=== PATIENT | female | born 1965 | race Caucasian/White ===

== ENCOUNTER 2020-09-13 06:54 | Day surgery (SDC) | payer OTHER ==
[~2020-09-13 06:54] MED LIST: Bupivacaine 0.5% 30 ML SDV ONE
[2020-09-13] MEDS ORDERED: Lactated Ringers 1,000 ML IV SCH (07:30)
[2020-09-13] MEDS ORDERED: fentaNYL 100 MCG/2 ML SDV ONE (07:33)
[2020-09-13] MEDS ORDERED: Propofol 200 MG/20 ML SDV ONE (07:33)
[2020-09-13] MEDS ORDERED: Midazolam 1 MG/ML 2 ML SDV ONE (07:33)
[2020-09-13] MEDS ORDERED: Nozin Nasal Sanitizer NASBOTH ONE (08:00)
[2020-09-13 08:03] LABS: CORONAVIRUS COVID-19 NAA NEGATIVE (NEGATIVE)
[2020-09-13] MEDS ORDERED: ceFAZolin 1 GM in Premix Bag 1 BAG IV ONE (08:30)
[2020-09-13] MEDS ORDERED: Ketorolac 60 MG/2 ML SDV ONE (10:35)
[2020-09-13] MEDS ORDERED: Acetaminophen/HYDROcodone 325-5 MG Tab PO PRN (11:20)
--- NOTE | 2020-09-15 14:54 | OR ---
DATE OF PROCEDURE: 09/13/2020 SURGEON: Esequiel Guillory MD PREOPERATIVE DIAGNOSES: 1. Chondromalacia, right knee. 2. Meniscus tear, right knee. POSTOPERATIVE DIAGNOSES: 1. Chondromalacia, patellofemoral joint, grade 2 and early grade 3. 2. Chondromalacia, medial femoral condyle, grade 4. PROCEDURE PERFORMED: Arthroscopy of right knee with chondroplasty of patella, trochlea, and medial femoral condyle. ANESTHESIA: General. INDICATIONS: Francheska is a 55-year-old female with a history of right knee pain. Examination and imaging are consistent with chondromalacia and possible meniscus tear. She now presents for arthroscopic evaluation with partial meniscectomy and chondroplasty as necessary. Risks, benefits, potential complications of the procedure were discussed. DESCRIPTION OF PROCEDURE: After adequate anesthesia was obtained, the patient was placed supine with a tourniquet about the right upper thigh. Right leg was prepped and draped in a sterile fashion. Leg was exsanguinated by gravity and tourniquet inflated to 300 mmHg. Standard inferior medial parapatellar portals were established. Scope was introduced, and the patellofemoral joint was inspected. This revealed significant fraying and fissuring of the cartilage on the dome of the patella, primarily grade 2, with some early grade 3 changes. Trochlear groove showed 2 areas of grade 2 chondromalacia, one central, and one more medial. Moving into the medial compartment, an area of significant chondromalacia on the medial femoral condyle was present with a significant fragment of articular cartilage present in the base of the lesion posteriorly on the condyle and attached by a thin stalk. This was essentially loose within the bed of the defect and hanging by one small connecting strand. This was removed with the shaver. The edges of the defect were lightly debrided. This was essentially full-thickness loss with a very thin layer still present in some areas. Hook probe was utilized to evaluate the meniscus. This was found to be intact with no significant tears. ACL and PCL were intact with some synovitis over the structures in the intercondylar notch. Lateral compartment revealed intact meniscus and intact articular cartilage. Attention was returned to the patellofemoral joint where a shaver was used to debride the loose fragments from the patella. Knee was flexed. Patella tracking was evaluated, which showed no significant irregularity. All loose fragments were removed. The knee was drained, and scope was withdrawn. Port sites were closed in a standard fashion, infiltrated with Marcaine, and a sterile dressing was applied. The patient tolerated the procedure well. There were no complications. She was taken from the operating room in stable condition. Esequiel Guillory MD /[id number]
== END 2020-09-13 13:00 | disposition home or self-care (01) ==
LOC: JP.SDS 06:54
PROVIDERS: ATTEND Specialist
DX: M94.261 Chondromalacia, right knee (principal); M65.861 Other synovitis and tenosynovitis, right lower leg; I10 Essential (primary) hypertension; E03.9 Hypothyroidism, unspecified; E78.5 Hyperlipidemia, unspecified; Z01.812 Encounter for preprocedural laboratory examination; Z20.822 Contact with and (suspected) exposure to COVID-19; Z79.890 Hormone replacement therapy; Z98.890 Other specified postprocedural states; Z88.8 Allergy status to other drugs, medicaments and biological substances; Z79.899 Other long term (current) drug therapy
CPT/HCPCS: 0241U; 36415; 80053; 85027; A9270-GY; J0690; J1885; J2250; J2704; J3010; J3490; J7120

== ENCOUNTER 2023-06-19 17:46 | Emergency (ER) | payer SELFPAY ==
[2023-06-19] MEDS: cefTRIAXone 1 GM in Sodium Chloride 0.9% 50 ML IV SCH (18:42)
[2023-06-19] MEDS: Sodium Chloride 0.9% 1,000 ML IV SCH (18:42)
[2023-06-19 18:44] LABS: BASOPHILS PERCENT AUTO 0.2 % (0.1-1.3); EOSINOPHILS PERCENT AUTO 0.2 % (0.0-5.4); HEMATOCRIT 36.2 % (34.3-46.0); HEMOGLOBIN 12.5 g/dL (11.2-15.5); IMMATURE GRAN ABSOLUTE AUTO 0.04 K/uL (0.00-0.23); IMMATURE GRAN PERCENT AUTO 0.4 % (0.0-0.7); LYMPHOCYTES ABSOLUTE AUTO 0.53 K/uL (0.8-3.3); MEAN CORPUSCULAR HEMOGLOBIN 28.4 pg (31.6-35.5); MEAN CORPUSCULAR HGB CONC 34.5 g/dL (31.6-35.5); MEAN CORPUSCULAR VOLUME 82.3 fL (81.4-99.0); MONOCYTES PERCENT AUTO 4.8 % (3.3-12.6); NEUTROPHILS ABSOLUTE AUTO 9.41 K/uL (1.0-7.6); NEUTROPHILS PERCENT AUTO 89.4 % (40.0-78.1); PLATELET COUNT,PLT 282 K/uL (130-375); WHITE BLOOD CELL COUNT,WBC 10.5 K/uL (3.2-11.0)
[2023-06-19 18:45] LABS: BASOPHILS ABSOLUTE AUTO 0.02 K/uL (0.00-0.10); EOSINOPHILS ABSOLUTE AUTO 0.02 K/uL (0.00-0.40)
[2023-06-19 19:06] LABS: A/G RATIO 1.1 (1.2-2.2); ALANINE AMINOTRANSFERASE,ALT 21 U/L (12-78); ALBUMIN 4.2 g/dL (3.4-5.0); ALKALINE PHOSPHATASE 91 U/L (46-116); ASPARTATE AMNIOTRANSFERASE,AST 17 U/L (15-37); BILIRUBIN TOTAL 0.8 mg/dL (0.2-1.0); BLOOD UREA NITROGEN,BUN 13 mg/dL (7-18); C-REACTIVE PROTEIN 3.18 mg/dL (<0.50); CALCIUM 8.9 mg/dL (8.5-10.1); CARBON DIOXIDE,CO2 26 mmol/L (21-32); CHLORIDE,CL 92 mmol/L (100-108); CREATININE 0.7 mg/dL (0.6-1.0); ESTIMATED GFR 101 mL/min (>60); GLUCOSE RANDOM 114 mg/dL (74-106); POTASSIUM,K 3.2 mmol/L (3.6-5.2); PROTEIN TOTAL,TP 7.9 g/dL (6.4-8.2); SODIUM,NA 130 mmol/L (140-148)
[2023-06-19 19:07] LABS: ANION GAP 15.2 mmol/L (5.0-14.0)
[2023-06-19 19:09] LABS: LACTIC ACID 0.8 mmol/L (0.4-2.0)
[2023-06-19 20:51] LABS: APPEARANCE,URINE SLIGHTLY CLOUDY (CLEAR); BILIRUBIN,URINE NEGATIVE (NEGATIVE); COLOR,URINE YELLOW (YELLOW); GLUCOSE,URINE NEGATIVE (NEGATIVE); KETONES,URINE NEGATIVE (NEGATIVE); LEUKOCYTE ESTERASE,URINE MODERATE (NEGATIVE); NITRITE,URINE NEGATIVE (NEGATIVE); OCCULT BLOOD,URINE TRACE-LYSED (NEGATIVE); PH,URINE 6.5 (5.0-8.0); PROTEIN,URINE NEGATIVE (NEGATIVE); UROBILINOGEN,URINE 0.2 EU/dL (0.2-1.0)
[2023-06-19 20:57] LABS: AMORPHOUS SEDIMENT,URINE NOT SEEN; BACTERIA,URINE FEW; EPITHELIAL CELLS,URINE RARE; MUCUS,URINE NOT SEEN; RBC,URINE 0-5 (0-5); WBC,URINE SEMI-PACKED (0-5)
[2023-06-19] MEDS: Ketorolac 30 MG/ML SDV IVPUSH ONE (21:08)
== END 2023-06-19 22:05 | disposition home or self-care (01) ==
LOC: JP.ED 17:46
DX: N39.0 Urinary tract infection, site not specified (principal); I10 Essential (primary) hypertension; Z88.8 Allergy status to other drugs, medicaments and biological substances; Z79.899 Other long term (current) drug therapy
CPT/HCPCS: 36415; 80053; 81001; 83605; 84145; 85025; 86140; 87040; 87086; 96365; 96375; 99284; J0696; J1885; J3490; J7030